=== PATIENT | male | born 1955 | race Caucasian/White ===

== ENCOUNTER 2024-02-04 11:33 | Emergency (ER) | payer OTHER, SELFPAY ==
[2024-02-04] VITALS (21 sets, daily range): BP systolic 123–171; BP diastolic 75–114; PULSE 54–71; RESP 14–20; O2SAT 94–100
--- NOTE | ~2024-02-04 | XR_ITS ---
EXAMINATION: XR chest 1V portable DATE: 02/04/2024 12:19 INDICATION: Altered mental status. Confusion. TECHNIQUE: A single frontal view of the chest was obtained. COMPARISON: None. FINDINGS: There is mild atelectasis in left lower lung zone. No pleural effusion or pneumothorax. The heart size is normal. There is a large hiatal hernia. IMPRESSION: 1. Mild atelectasis in left lower lung zone. 2. Large hiatal hernia. Reviewed, dictated and finalized at location A. ER
--- NOTE | ~2024-02-04 | CT_ITS ---
EXAMINATION: CT brain wo con DATE: 02/04/2024 12:19 INDICATION: Altered mental status. Garbled speech. Confusion. TECHNIQUE: Computed tomography (CT) of the head was performed without intravenous contrast. The mA wa s adjusted according to patient size. Iterative reconstruction technique was employed. The dose-lengt h product was 681.00 mGy-cm. COMPARISON: None FINDINGS: There is no intracranial hemorrhage, acute infarction, or abnormal intracranial mass lesion . The ventricles are normal in size. There is mucosal thickening in the paranasal sinuses. The orbits are normal. The mastoid air cells are normal. There is cerumen in left external auditory canal. IMPRESSION: 1. Normal brain. Reviewed, dictated and finalized at location A. IFIED FLEX ENDOSCOPE REPROCESSOR IMPRESSION: 1. Normal brain.
--- NOTE | 2024-02-04 11:40 | ED_ITS ---
HPI - Neuro Symptoms/Deficit General Chief Complaint: Weakness Stated Complaint: GENERALIZED WEAKNESS Time Seen by Provider: 02/04/24 11:39 Source: patient Mode of arrival: ambulatory Limitations: no limitations History of Present Illness HPI Narrative: 68-year-old male, [facility] resident with a history of undifferentiated schizophrenia, hypertension, GERD, hyperlipidemia was brought in from the facility with a 1 hour history of acute onset -- confusion -- unable to speak clearly -- urinary incontinence at 10:30 a.m. the patient went to the bathroom and when he came out he was noted to have the above symptoms. No focal motor deficits noted. No seizure activity noted. Patient is drowsy and unable to answer questions appropriately. He denies chest pain or shortness of breath. discussed with his caregiver over the last 50 years who stated the patient does not usually talk when stressed. Onset (ago): hour(s) ( 1.5 hours ago) Time: 11:52 Last Observed Normal: 10:30 Timing confirmed by: caregiver Location: speech and altered Relieving factors: none Exacerbating factors: none Context: sudden onset On Anticoagulants: No Treatments Prior to Arrival: none Related Data Home Medications ?Medication ?Instructions ?Recorded ?Confirmed ?Last Taken ?Type divalproex 500 mg tablet,delayed 500 mg PO Q12H 02/04/24 02/04/24 History release furosemide 20 mg tablet 20 mg PO DAILY 02/04/24 02/04/24 History losartan 100 mg tablet 100 mg PO DAILY 02/04/24 02/04/24 History omeprazole 20 mg capsule,delayed 20 mg PO DAILY 02/04/24 02/04/24 History release risperidone 0.5 mg tablet 0.5 mg PO DAILY 02/04/24 02/04/24 History sertraline 50 mg tablet 50 mg PO DAILY 02/04/24 02/04/24 History Allergies Allergy/AdvReac Type Severity Reaction Status Date / Time Penicillins Allergy Unknown Unknown Verified 02/04/24 12:31 penicillin G benzathine Allergy Unknown Verified 02/04/24 12:32 (From Bicillin L-A) Review of Systems 2 Review of Systems: ROS unobtainable: Yes unobtainable due to mental status PMFSH Past Medical History Medical History (Updated 02/04/24 @ 14:04 by Michael Brady MD) Hypertension Schizophrenia Exam 2 Narrative: afebrile. vitals are stable oxygen saturation is 99% on room air. Const: General: ill appearing Nutritional Appearance: well nourished O rientation/consciousness: confusion Limitations: altered mental status HENMT: Head: normal to inspection Ears: external ears normal F michael/Nose/Sinus: Normal external nose present Face and sinus: normal facial exam Mouth: Yes Normal oral and palatal mucosa present Throat: posterior oropharynx normal Eyes: Conjunctivae: conjunctivae normal Pupils: Equal, round and reactive pupils present EOM: EOMs intact bilaterally Direct Ophthalmoscopy: no photophobia Neck: Neck: normal visual inspection, no lymphadenopathy and no meningeal signs Chest: Chest palpation & inspection: normal inspection of the chest Resp: Effort & Inspection: normal respiratory effort Auscultation: clear to auscultation bilaterally Cardio: Rate: regular rate Rhythm: regular rhythm GI: GI Palp: Yes Soft to palpation Auscultation: normal bowel sounds O ther: No tenderness/rigidity / rebound. : General: Yes no CVA tenderness Back/Spine/Pelvis: Back: no CVA tenderness Skin: Other: Chronic venous stasis changes both legs Neuro: General: patient oriented x3 ( patient is confused and unable to answer questions.), moves all extremities, no meningeal signs and no focal motor deficits Cranial nerves: Yes Nystagmus not present Speech: normal speech ( Speech is slow and dysarthric) Extrem: General: normal to inspection and edema Psych: Other: altered mental status with confusion Course Course Emergency Course: Bradycardia-- Patient has remained asymptomatic. patient has intermittent bradycardia with stable blood pressure without any focal deficits. Thrombocytopenia altered mental status-- discussed with the patient's POA who stated that this is the patient's usual self and that he stops talking when stressed. lactic acidosis without any fever, normal white cell count and without any obvious focus of infection. Vital Signs Vital signs: Vital Signs Pulse Rate 60 02/04/24 11:56 Respiratory Rate 20 02/04/24 11:56 Pulse Oximetry 96 02/04/24 11:56 Oxygen Delivery Room Air 02/04/24 11:56 Pulse Rate 56 L 02/04/24 12:24 Respiratory Rate 20 02/04/24 12:24 Blood Pressure 157/79 H 02/04/24 12:24 Pulse Oximetry 97 02/04/24 12:24 Oxygen Delivery Room Air 02/04/24 12:24 MDM - Neuro Symptoms/Deficit MDM Narrative Medical decision making narrative: Altered mental status thrombocytopenia Differential Diagnosis Differential diagnosis: Likely cerebrovascular accident and transient cerebral ischemia Lab Data Attestation: I reviewed the patient's lab results. 02/04/24 12:05 02/04/24 12:04 Labs: Lab Results 02/04/24 02/04/24 02/04/24 Range/Units 11:51 12:04 12:05 WBC 5.5 (4.8-10.8) K/mm3 RBC 4.75 (4.70-6.10) M/mm3 Hgb 15.3 (12.4-15.3) g/dL Hct 43.3 (37.0-46.0) % MCV 91.2 (78.0-102.0) fL MCH 32.2 H (27.0-31.0) pg MCHC 35.3 (32-36) g/dL RDW 12.3 (11.6-14.4) % Plt Count 127 L (150-420) K/mm3 MPV 8.6 L (8.7-11.0) fl Immature Gran % (Auto) 0.5 H (0.0-0.0) % Neut % (Auto) 56.9 (50.0-70.0) % Lymph % (Auto) 29.1 (18.0-42.0) % Faulkner % (Auto) 10.4 (2.0-11.0) % Eos % (Auto) 2.6 (1.0-6.0) % Baso % (Auto) 0.5 (0.0-1.0) % Lymph # (Auto) 1.59 (1.10-4.50) K/mm3 Faulkner # (Auto) 0.57 (0.10-0.90) K/mm3 Eos # (Auto) 0.14 (0.02-0.50) K/mm3 Baso # (Auto) 0.03 (0.00-0.10) K/mm3 Abs Immat Gran (auto) 0.03 H (0.00-0.00) K/mm3 Absolute Neuts (auto) 3.10 (1.70-7.20) K/mm3 Absolute Nucleated RBC 0.00 (0.00-0.00) K/mm3 Nucleated RBC % 0.0 (0-0.0) % Sodium 141 (136-145) mmol/L Potassium 4.3 (3.5-5.1) mmol/L Chloride 104 (98-108) mmol/L Carbon Dioxide 28 (21-32) mmol/L Anion Gap 9 (4-12) mmol/L BUN 18 (7-18) mg/dL Creatinine 0.95 (0.70-1.30) mg/dL Estim Creat Clear Calc 72 ml/min Estimated GFR > 60 (59 - ) Glucose 98 (70-99) mg/dL Calculated Osmolality 293 (285-295) mOsm/kg Lactic Acid 2.6 H (0.4-2.0) mmol/L Calcium 9.1 (8.5-10.1) mg/dL Magnesium 1.8 (1.8-2.4) mg/dL Total Bilirubin 0.5 (0.00-1.00) mg/dL AST 22 (15-37) U/L ALT 31 (16-63) U/L Alkaline Phosphatase 89 (46-116) U/L Ammonia 13 (11-32) umol/L Troponin I 6.9 (0.00-60.4) ng/L Total Protein 6.7 (6.4-8.2) g/dL Albumin 3.6 (3.4-5.0) g/dL Lipase 24 (16-77) U/L TSH 1.95 (0.36-3.74) uIU/mL Urine Color Light yellow (Yellow) Urine Appearance Clear (Clear) Urine pH 6.0 (5.0-8.0) Ur Specific [place] 1.010 (1.010-1.020) Urine Protein Negative (Negative) Urine Glucose (UA) Negative (Negative) Urine Ketones Negative (Negative) Ur Blood (Man) Negative (Negative) Urine Nitrate Negative (Negative) Urine Bilirubin Negative (Negative) Urine Urobilinogen 0.2 (0.2-1.0) mg/dL Leukocyte Esterase Rfl Negative (Negative) TOY/UL Urine Opiates Screen Negative (Negative) Urine Methadone Screen Negative (Negative) Ur Barbiturates Screen Negative (Negative) Ur Phencyclidine Scrn Negative (Negative) Ur Amphetamine Screen Negative (Negative) U Benzodiazepines Scrn Negative (Negative) Urine Cocaine Screen Negative (Negative) U Cannabinoids Screen Negative (Negative) Ethyl Alcohol < 3 (0-6) mg/dL Influenza A (RT-PCR) (Negative) Influenza B (RT-PCR) (Negative) RSV (RT-PCR) (Negative) SARS-CoV-2 RNA (RT-PCR) (Negative) 02/04/24 Range/Units 12:45 WBC (4.8-10.8) K/mm3 RBC (4.70-6.10) M/mm3 Hgb (12.4-15.3) g/dL Hct (37.0-46.0) % MCV (78.0-102.0) fL MCH (27.0-31.0) pg MCHC (32-36) g/dL RDW (11.6-14.4) % Plt Count (150-420) K/mm3 MPV (8.7-11.0) fl Immature Gran % (Auto) (0.0-0.0) % Neut % (Auto) (50.0-70.0) % Lymph % (Auto) (18.0-42.0) % Faulkner % (Auto) (2.0-11.0) % Eos % (Auto) (1.0-6.0) % Baso % (Auto) (0.0-1.0) % Lymph # (Auto) (1.10-4.50) K/mm3 Faulkner # (Auto) (0.10-0.90) K/mm3 Eos # (Auto) (0.02-0.50) K/mm3 Baso # (Auto) (0.00-0.10) K/mm3 Abs Immat Gran (auto) (0.00-0.00) K/mm3 Absolute Neuts (auto) (1.70-7.20) K/mm3 Absolute Nucleated RBC (0.00-0.00) K/mm3 Nucleated RBC % (0-0.0) % Sodium (136-145) mmol/L Potassium (3.5-5.1) mmol/L Chloride (98-108) mmol/L Carbon Dioxide (21-32) mmol/L Anion Gap (4-12) mmol/L BUN (7-18) mg/dL Creatinine (0.70-1.30) mg/dL Estim Creat Clear Calc ml/min Estimated GFR (59 - ) Glucose (70-99) mg/dL Calculated Osmolality (285-295) mOsm/kg Lactic Acid (0.4-2.0) mmol/L Calcium (8.5-10.1) mg/dL Magnesium (1.8-2.4) mg/dL Total Bilirubin (0.00-1.00) mg/dL AST (15-37) U/L ALT (16-63) U/L Alkaline Phosphatase (46-116) U/L Ammonia (11-32) umol/L Troponin I (0.00-60.4) ng/L Total Protein (6.4-8.2) g/dL Albumin (3.4-5.0) g/dL Lipase (16-77) U/L TSH (0.36-3.74) uIU/mL Urine Color (Yellow) Urine Appearance (Clear) Urine pH (5.0-8.0) Ur Specific [place] (1.010-1.020) Urine Protein (Negative) Urine Glucose (UA) (Negative) Urine Ketones (Negative) Ur Blood (Man) (Negative) Urine Nitrate (Negative) Urine Bilirubin (Negative) Urine Urobilinogen (0.2-1.0) mg/dL Leukocyte Esterase Rfl (Negative) TOY/UL Urine Opiates Screen (Negative) Urine Methadone Screen (Negative) Ur Barbiturates Screen (Negative) Ur Phencyclidine Scrn (Negative) Ur Amphetamine Screen (Negative) U Benzodiazepines Scrn (Negative) Urine Cocaine Screen (Negative) U Cannabinoids Screen (Negative) Ethyl Alcohol (0-6) mg/dL Influenza A (RT-PCR) Negative (Negative) Influenza B (RT-PCR) Negative (Negative) RSV (RT-PCR) Negative (Negative) SARS-CoV-2 RNA (RT-PCR) Negative (Negative) ECG Data EKG #1: ECG completion date: 02/04/24 ECG completion time: 12:30 Interpretation: sinus bradycardia with a heart rate of 52. Right bundle-branch block pattern with left axis deviation. No ST elevation noted. Discharge Plan Discharge Clinical Impression: Thrombocytopenia Altered mental status Qualifiers: Altered mental status type: unspecified Qualified Code(s): R41.82 - Altered mental status, unspecified Patient Disposition: Home, Self-Care Condition: Stable Instructions: Antibiotic Form, Altered Mental Status (ED) Patient Language: Citizen Of [place] Prescriptions: No Action divalproex 500 mg tablet,delayed release (DR/EC) 500 mg PO Q12H omeprazole 20 mg capsule,delayed release(DR/EC) 20 mg PO DAILY furosemide 20 mg tablet 20 mg PO DAILY losartan 100 mg tablet 100 mg PO DAILY sertraline 50 mg tablet 50 mg PO DAILY risperidone 0.5 mg tablet 0.5 mg PO DAILY Follow-up/Referrals: Papo,Burak Berg MD [Primary Care Provider] - Time of Disposition: 14:04 Quality Stroke Date of last known normal: 02/04/24 Time of last known normal: 10:30 Stroke Scale Stroke Scale 1: Stroke scale date:: 02/04/24 Stroke scale time:: 11:57 1a Level of consciousness: alert-0 1b Level of consciousness questions: answers one correctly-1 1c Level of consciousness commands: obeys both correctly-0 2 Best gaze: normal-0 3 Visual: no visual loss-0 4 Facial palsy: normal-0 5a Motor: left arm: no drift-0 5b Motor: right arm: no drift-0 6a Motor: left leg: no drift-0 6b Motor: right leg: no drift-0 7 Limb ataxia: absent-0 8 Sensory: normal-0 9 Best language: some loss of fluency-1 10 Dysarthria: slurs some words-1 11 Extinction and inattention: no abnormality-0 Level:: 3
--- NOTE | 2024-02-04 11:50 | ECG_ITS ---
Test Date: 2024-02-04 12:30:09 Measurements Intervals [place] Rate: 52 P: 20 [place]: 182 QRS: -35 QRSD: 150 T: 14 QT: 474 QTc: 444 Interpretive Statements SINUS BRADYCARDIA LEFT AXIS DEVIATION [QRS AXIS < -30] RIGHT BUNDLE BRANCH BLOCK [120+ ms QRS DURATION, UPRIGHT V1, 40+ ms S IN I/aVL/V4/V5/V6] No previous ECG available for comparison Electronically Signed On 02-04-2024 14:45:44 GR[employer]ERY CASHIER by Andrea Crandall M.D.
[2024-02-04 12:10] LABS: Basophils Absolute Auto 0.03 K/mm3 (0.00-0.10); Basophils Percent Auto 0.5 % (0.0-1.0); Eosinophils Absolute Auto 0.14 K/mm3 (0.02-0.50); Eosinophils Percent Auto 2.6 % (1.0-6.0); Hematocrit 43.3 % (37.0-46.0); Hemoglobin 15.3 g/dL (12.4-15.3); Immature Granulocyte Absolute 0.03 K/mm3 (0.00-0.00); Immature Granulocyte Percent A 0.5 % (0.0-0.0); Lymphocytes Absolute Auto 1.59 K/mm3 (1.10-4.50); Lymphocytes Percent Auto 29.1 % (18.0-42.0); Mean Corpuscular HGB Conc 35.3 g/dL (32-36); Mean Corpuscular Hemoglobin 32.2 pg (27.0-31.0); Mean Corpuscular Volume 91.2 fL (78.0-102.0); Mean Platelet Volume 8.6 fl (8.7-11.0); Monocytes Absolute Auto 0.57 K/mm3 (0.10-0.90); Monocytes Percent Auto 10.4 % (2.0-11.0); Neutrophils Percent Auto 56.9 % (50.0-70.0); Platelet Count Result 127 K/mm3 (150-420); Red Blood Count 4.75 M/mm3 (4.70-6.10); Red Cell Distribution Width 12.3 % (11.6-14.4); White Blood Count 5.5 K/mm3 (4.8-10.8)
[2024-02-04 12:29] LABS: Lactic Acid Reflex 2.6 mmol/L (0.4-2.0)
[2024-02-04 12:36] LABS: Alanine Aminotransferase 31 U/L (16-63); Albumin Level 3.6 g/dL (3.4-5.0); Alkaline Phosphatase 89 U/L (46-116); Ammonia 13 umol/L (11-32); Anion Gap 9 mmol/L (4-12); Aspartate Amino Transferase 22 U/L (15-37); Bilirubin,Total 0.5 mg/dL (0.00-1.00); Blood Urea Nitrogen 18 mg/dL (7-18); Calcium 9.1 mg/dL (8.5-10.1); Carbon Dioxide 28 mmol/L (21-32); Chloride 104 mmol/L (98-108); Estimated CRCL calculation 72 ml/min; Estimated Glomerular Filt Rate > 60; Glucose 98 mg/dL (70-99); Lipase 24 U/L (16-77); Magnesium 1.8 mg/dL (1.8-2.4); Osmolality Calculated 293 mOsm/kg (285-295); Potassium 4.3 mmol/L (3.5-5.1); Sodium 141 mmol/L (136-145); Thyroid Stimulating Hormone 1.95 uIU/mL (0.36-3.74); Total Protein 6.7 g/dL (6.4-8.2); Troponin I 6.9 ng/L (0.00-60.4)
[2024-02-04 12:37] LABS: Ethanol < 3 mg/dL (0-6)
[2024-02-04] MEDS: LACTATED RINGERS 1,000 ML 999 ML IV CONT (12:53)
[2024-02-04 13:23] LABS: SARS-CoV-2 RNA PCR Negative (Negative)
[2024-02-04 13:24] LABS: Add Urine Microscopic? NO; Appearance Urine Clear (Clear); Bilirubin Urine Negative (Negative); Blood Urine Negative (Negative); Color Urine Light Yellow (Yellow); Glucose Urine UA Negative (Negative); Ketones Urine Negative (Negative); Leukocyte Esterase Ur Negative LEU/UL (Negative); Nitrate Urine Negative (Negative); Protein Urine Negative (Negative); Urobilinogen Urine 0.2 mg/dL (0.2-1.0)
[2024-02-04 13:29] LABS: Influenza A QL RT-PCR Negative (Negative); Influenza B QL RT-PCR Negative (Negative); RSV RNA, RT-PCR Negative (Negative)
[2024-02-04 13:38] LABS: Amphetamine Screen Urine Negative (Negative); Barbiturate Screen Urine Negative (Negative); Benzodiazepines Screen Urine Negative (Negative); Cannabinoid Screen Urine Negative (Negative); Cocaine Screen Urine Negative (Negative); Methadone Screen Urine Negative (Negative); Opiate Screen Urine Negative (Negative); Phencyclidine Screen Urine Negative (Negative)
[2024-02-04 15:06] LABS: Reflex Lactic Acid Yes or No Add Lactic
== END 2024-02-04 14:25 | disposition home or self-care (01) ==
PROVIDERS: Emergency Provider Internal Medicine Critical Care Medicine; PCP Internal Medicine
DX: D69.6 Thrombocytopenia, unspecified (principal); R41.82 Altered mental status, unspecified; R53.1 Weakness; I10 Essential (primary) hypertension; E78.5 Hyperlipidemia, unspecified; K21.9 Gastro-esophageal reflux disease without esophagitis; F20.9 Schizophrenia, unspecified; Z20.822 Contact with and (suspected) exposure to COVID-19; Z79.899 Other long term (current) drug therapy
CPT/HCPCS: 36415; 70450; 71045; 80053; 80307; 81003; 82077; 82140; 83605; 83690; 83735; 84443; 84484; 85025; 87637; 93005; 96360; 99284; J7120

== ENCOUNTER 2024-10-02 07:05 | Outpatient (CLI) | payer MEDICARE, MEDICAID, SELFPAY ==
--- OUTSIDE RECORDS SUMMARY | 2024-10-02 07:08 | XMS_ITS | Clinical Summary ---
Author Organization [facility] Address [facility] [place] [address] Care Team Providers Care Mat Repairer Name Role Phone Unknown, Provider Primary Care Provider Unavaila ble Source Comments [facility],non-owned Affiliates and Associated Physician Practices is amultiple site organization consisting of ambulatory clinics and hospital sitesin [place], [place], [place] and [place]. This disclosure is being madepursuant to the Care Everywhere program and may not contain all information available regarding this patient. Last updated 17.[facility] [employer] Allergies No known active allergies Medications * Be aware that medications may not be up to date on this document. Alwaysverify current medications with the patient. levETIRAcetam (Keppra) 750 MG tablet Take 1 (one) tablet by mouth 2 times daily 60 tablet 03/06/2024 Active losartan (Cozaar) 50 MG tablet Take 1 (one) tablet by mouth once daily 30 tablet 1 03/06/2024 Active risperiDONE (RisperDAL) 0.5 MG tablet Take 1 (one) tablet by mouth 2 times daily 60 tablet 03/06/2024 Active pantoprazole EC (Protonix) 40 MG tablet Take 1 (one) tablet by mouth once daily 30 tablet 03/06/2024 Active Pyridoxine HCl 50 MG Take 1 (one) tablet by mouth once daily 30 tablet 03/06/2024 Active sertraline (Zoloft) 100 MG tablet Take 0.5 (one-half) tablet by mouth once daily 30 tablet 03/06/2024 Active furosemide (Lasix) 20 MG tablet Take 1 (one) tablet by mouth once daily 30 tablet 03/06/2024 Active Active Problems Problem Noted Date Diagnosed Date Developmental delay 02/28/2024 Seizure 02/26/2024 Weakness 02/26/2024 Altered mental status 02/26/2024 Slurred speech 02/26/2024 Urinary incontinence 02/26/2024 Schizophrenia 04/15/2023 Overview (02/26/2024): Last Assessment & Plan: Condition: stable Source of diagnosis: Medication and Diagnosis confirmed from PCP record and currently active Follow up in: three months with PCP Dysthymic disorder 01/28/2020 Essential hypertension, benign 01/28/2020 Overview (02/26/2024): Last Assessment & Plan: Condition: stable Source of diagnosis: Vital signs, Medication and Diagnosis confirmed from PCP record and currently active Discussed target blood pressure. Continue medication as prescribed from PCP/specialist. Take medications at the same time every day. Lifestyle modification advised: DASH diet, reduce stress/anxiety, discussed health weight management, activity as tolerated or advised from PCP, try to avoid alcohol and nicotine. Follow up in: six months with PCP Gastroesophageal reflux disease without esophagi tis 01/28/2020 Overview (02/26/2024): Last Assessment & Plan: Condition: stable Source of diagnosis: Review of systems, Medication and Diagnosis confirmed from PCP record and currently active Reviewed use of antacid medication and/or diet modifications of decreasing caffeine, spicy foods, chocolate, and avoiding alcohol, tobacco, NSAIDs, and reducing citrus acids. Follow up in: six months with PCP Social History Tobacco Use Types Packs/Day Years Used Date Smoking Tobacco: Never Smokeless Tobacco: Never Tobacco Cessation:Counseling Given: Not Answered Alcohol Use Standard Drinks/Week Comments Never 0 (1 standard drink = 0.6 oz pur e alcohol) AUDIT-C Answer Date Recorded Q1: How often do you have a drink containing alcohol? Patient unable to answer 02/28/2024 Q2: How many drinks containi ng alcohol do you have on a typical day when you are drinking? Patient unable to answer Q3: How often do you have si x or more drinks on one occasion? Patient unable to answer 02/28/2024 Overall Financial Resource Strain (CARDIA) Answe r Date Recorded How hard is it for you to pa y for the very basics like food, housing, medical care, and heating? Patient unable to answer 02/28/2024 PHQ-2 Answer Date Recorded Patient Health Questionnaire-2 Score 0 02/29/2024 [facility] [place] of Occupat ional Health - Occupational Stress Questionnaire Answer Date Recorded Do you feel stress - tense, restless, nervous, or anxious, or unable to sleep at night because your mind is troubled all the time - these days? Patient unable to answer 02/28/2024 Hunger Vital Sign Answer Date Recorded Within the past 12 months, y ou worried that your food would run out before you got the money to buy more. Patient unable to answer 02/28/2024 Within the past 12 months, t he food you bought just didn't last and you didn't have money to get more. Patient unable to answer 02/28/2024 PRAPARE - Transportation Answer Date Re corded In the past 12 months, has l ack of transportation kept you from medical appointments or from getting medications? Patient unable to answer 02/28/2024 In the past 12 months, has l ack of transportation kept you from meetings, work, or from getting things needed for daily living? Patient unable to answer 02/28/2024 Housing Stability Vital Sign Answer Oneal e Recorded In the last 12 months, was t here a time when you were not able to pay the mortgage or rent on time? Patient unable to answer 02/28/2024 In the past 12 months, how m any times have you moved where you were living? 0 02/28/2024 At any time in the past 12 m onths, were you homeless or living in a usp (including now)? 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 Gender Identity Not on file Sexual Orientation Not on file Last Filed Vital Signs Vital Sign Reading Time Taken Comments Blood Pressure 122/64 03/05/2024 7:24 PM UNIT CONTROL WORKER Pulse 71 03/05/2024 7:24 PM UNIT CONTROL WORKER Temperature 36.7 C (98.1 F) 03/05/2024 7:24 PM UNIT CONTROL WORKER Respiratory Rate 18 03/05/2024 7:24 PM UNIT CONTROL WORKER Oxygen Saturation 96% 03/05/2024 7:24 PM UNIT CONTROL WORKER Inhaled Oxygen Concentration - - Weight 108 kg (238 lb) 02/28/2024 4:10 AM UNIT CONTROL WORKER Height 182.9 cm (6' 0.01) 02/26/2024 8:00 PM CS T Body Mass Index 32.27 02/26/2024 8:00 PM UNIT CONTROL WORKER Plan of Treatment Health Maintenance Due Date Last Done Comments COLOGUARD (AGES 45-75) - COLON CA SCREENING 1955 COLON MONITORING 1955 COLONOSCOPY - COLON CA SCREENING 1955 CT COLONOGRAPHY - COLON CA SCREENING 1955 Colorectal Cancer Screening 1955 FIT - COLON CA SCREENING 1955 FLEX SIG - COLON CA SCREENING 1955 MEDICARE AWV 12 MONTHS 1955 HEPATITIS C SCREENING 08/12/1973 DTAP/TDAP/TD VACCINES (1 - Tdap) 08/16/1974 PNEUMOCOCCAL VACCINE 50+ (1 of 1 - PCV) 08/16/2005 ZOSTER VACCINE (1 of 2) 08/16/2005 Respiratory Syncytial Virus (RSV) Vaccine Pt: or over 60 yrs (1 - Risk 60-74 years 1-dose series) 2015 COVID-19 VACCINE (2023- season) 2023 12/14/2021, 10/02/2021, 01/12/2021, Additional history exists INFLUENZA VACCINE (#1) 2024 , 11/16/2019, 11/19/2018, Additional history exists LIPID TESTING 05/14/2028 05/15/2023 DEPRESSION SCREENING Completed 02/26/2024 HEPATITIS B VACCINE Aged Out No longe r eligible based on patient's age to complete this topic HIB VACCINE Aged Out No longer eligi ble based on patient's age to complete this topic HPV VACCINE Aged Out No longer eligi ble based on patient's age to complete this topic MENINGOCOCCAL (Group B) VACCINE SHARED DECISION-MAKING Aged Out No longer eligible based on patient's age to complete this topic MENINGOCOCCAL GROUPS A/C/Y/W VACCINE Aged Out No longer eligible based on patient's age to complete this topic Insurance MEDICARE MEDICARE MEDICAID - [place] Advance Directives * Full Code (Latest Code Status on File) Date Activated Date Inactivated Comments 02/26/2024 1:04 PM 03/06/2024 5:01 PM Care Teams Mat Repairer Relationship Specialty Start Date End Date Unknown, Provider PCP - General 02/26/24
--- OUTSIDE RECORDS SUMMARY | 2024-10-02 07:09 | XMS_ITS | Patient Health Record ---
Author Organization [facility] [employer] Address [address] [facility] [address] [place] [address] Care Team Providers Care Hospitalist Physician Name Role Phone Morales Suarez Unavailable [phone] Reason For Referral No Information Plan Of Treatment No Information
[2024-10-02 07:19] LABS: Hematocrit 45.4 % (37.0-46.0); Hemoglobin 15.6 g/dL (12.4-15.3); Mean Corpuscular HGB Conc 34.4 g/dL (32-36); Mean Corpuscular Hemoglobin 31.1 pg (27.0-31.0); Mean Corpuscular Volume 90.4 fL (78.0-102.0); Platelet Count Result 152 K/mm3 (150-420); Red Blood Count 5.02 M/mm3 (4.70-6.10); White Blood Count 4.8 K/mm3 (4.8-10.8)
[2024-10-02 07:53] LABS: Alanine Aminotransferase 18 U/L (6-50); Albumin Level 4.6 g/dL (3.5-5.1); Alkaline Phosphatase 115 U/L (38-126); Anion Gap 9 mmol/L (4-12); Aspartate Amino Transferase 22 U/L (17-59); Bilirubin,Total 0.8 mg/dL (0.2-1.3); Blood Urea Nitrogen 15 mg/dL (9-20); Calcium 9.9 mg/dL (8.4-10.2); Carbon Dioxide 30 mmol/L (22-30); Chloride 103 mmol/L (98-107); Cholesterol 171 mg/dL (0-200); Estimated Glomerular Filt Rate > 60; Glucose 109 mg/dL (65-110); HDL Direct 36 mg/dL; Osmolality Calculated 295 mOsm/kg (285-295); Potassium 4.5 mmol/L (3.4-5.0); Sodium 142 mmol/L (137-145); Total Protein 7.2 g/dL (6.3-8.2); Triglycerides 94 mg/dL (<150)
[2024-10-02 08:22] LABS: Thyroid Stimulating Hormone 1.640 uIU/mL (0.465-4.680)
== END 2024-10-02 07:06 | disposition home or self-care (01) ==
LOC: CHSLAB 07:06
PROVIDERS: PCP Family Medicine; Visit Provider Family Medicine
DX: E78.2 Mixed hyperlipidemia (principal); R56.9 Unspecified convulsions; I10 Essential (primary) hypertension
CPT/HCPCS: 36415; 80053; 80061; 80177; 84443; 85027

== ENCOUNTER 2025-01-14 09:46 | Outpatient (CLI) | payer MEDICARE, MEDICAID, SELFPAY ==
[2025-01-14 10:13] LABS: Hematocrit 43.6 % (37.0-46.0); Hemoglobin 14.8 g/dL (12.4-15.3); Immature Granulocyte Percent A 0.2 % (0.0-0.0); Lymphocytes Absolute Auto 1.28 K/mm3 (1.10-4.50); Mean Corpuscular HGB Conc 33.9 g/dL (32-36); Mean Corpuscular Hemoglobin 31.2 pg (27.0-31.0); Mean Corpuscular Volume 91.8 fL (78.0-102.0); Nucleated Red Blood Cells Absolute Auto 0.00 K/mm3 (0.00-0.00); Nucleated Red Blood Cells Perc 0.0 % (0-0.0); Platelet Count Result 145 K/mm3 (150-420); Red Blood Count 4.75 M/mm3 (4.70-6.10); White Blood Count 5.7 K/mm3 (4.8-10.8)
[2025-01-14 10:32] LABS: MALB Creatinine Ratio 15.7 mg/g (0-30)
[2025-01-14 10:40] LABS: Alanine Aminotransferase 17 U/L (6-50); Albumin Level 4.6 g/dL (3.5-5.1); Alkaline Phosphatase 131 U/L (38-126); Anion Gap 9 mmol/L (4-12); Aspartate Amino Transferase 21 U/L (17-59); Bilirubin,Total 0.6 mg/dL (0.2-1.3); Blood Urea Nitrogen 15 mg/dL (9-20); Calcium 9.5 mg/dL (8.4-10.2); Carbon Dioxide 29 mmol/L (22-30); Chloride 104 mmol/L (98-107); Cholesterol 123 mg/dL (0-200); Estimated Glomerular Filt Rate > 60; Glucose 88 mg/dL (65-110); HDL Direct 43 mg/dL; Osmolality Calculated 293 mOsm/kg (285-295); Potassium 4.5 mmol/L (3.4-5.0); Sodium 142 mmol/L (137-145); Total Protein 6.9 g/dL (6.3-8.2); Triglycerides 82 mg/dL (<150)
--- OUTSIDE RECORDS SUMMARY | 2025-01-14 10:44 | XMS_ITS | Clinical Summary ---
Author Organization [facility] Address [facility] [place] [address] Care Team Providers Care Mathematics Professor Name Role Phone Unknown, Provider Primary Care Provider Unavaila ble Source Comments [facility],non-owned Affiliates and Associated Physician Practices is amultiple site organization consisting of ambulatory clinics and hospital sitesin [place], [place], [place] and [place]. This disclosure is being madepursuant to the Care Everywhere program and may not contain all information available regarding this patient. Last updated 17.[facility] [employer] Allergies No known active allergies Medications * [...] Recorded Patient Health Questionnaire-2 Score 0 02/29/2024 [facility] of Occupat ional Health - Occupational Stress [...] were you homeless or living in a halfway (including now)? Patient unable to answer 02/28/2024 Sex and Gender Information Value Date Recorded Sex Assigned at Not on file Legal Sex Male 4:[address] Gender Identity Not on file Sexual Orientation Not on file Last Filed Vital Signs Vital Sign Reading Time Taken Comments Blood Pressure 122/64 03/05/2024 7:[address] Pulse 71 03/05/2024 7:[address] Temperature 36.7 C (98.1 F) 03/05/2024 7:[address] Respiratory Rate 18 03/05/2024 7:[address] Oxygen Saturation 96% 03/05/2024 7:[address] Inhaled Oxygen Concentration - - Weight 108 kg (238 lb) 02/28/2024 4:[address] Height 182.9 cm (6' 0.01) 02/26/2024 8:00 PM CS T Body Mass Index 32.27 02/26/2024 8:[address] Plan of Treatment Health Maintenance Due Date [...] 50+ (1 of 1 - PCV) 08/16/2005 Respiratory Syncytial Virus (RSV) Vaccine Pt: or over 60 yrs (1 - Risk 50-74 years 1-dose series) 08/16/2005 ZOSTER VACCINE (1 of 2) 08/16/2005 COVID-19 VACCINE ( season) 2024 12/14/2021, 10/02/2021, 01/12/2021, Additional history exists INFLUENZA [...] 1:04 PM 03/06/2024 5:01 PM Care Teams Mathematics Professor Relationship Specialty Start Date End Date Unknown, Provider PCP - General 02/26/24
[2025-01-14 11:10] LABS: Thyroid Stimulating Hormone 1.260 uIU/mL (0.465-4.680)
== END 2025-01-14 09:47 | disposition home or self-care (01) ==
PROVIDERS: PCP Family Medicine; Visit Provider Family Medicine
DX: E78.2 Mixed hyperlipidemia (principal); I10 Essential (primary) hypertension; R56.9 Unspecified convulsions
CPT/HCPCS: 36415; 80053; 80061; 82043; 84443; 85025